=== PATIENT | male | born 1960 | race Caucasian/White ===

== ENCOUNTER → 2016-12-29 | Outpatient (CLI) | payer OTHER | END | disposition home or self-care (01) | LOC: LABWHC1 09:48 | PROVIDERS: ATTEND Internal Medicine Interventional Cardiology | DX: E05.90 Thyrotoxicosis, unspecified without thyrotoxic crisis or storm (principal) | CPT/HCPCS: 36415; 84439; 84443 ==

== ENCOUNTER → 2017-01-11 | Outpatient (CLI) | payer OTHER ==
[2017-01-11 16:59] LABS: Anion Gap 8 mmol/L; Blood Urea Nitrogen 24 mg/dL (9-20); Calcium 9.5 mg/dL (8.4-10.2); Carbon Dioxide 28 mmol/L (22-30); Chloride 105 mmol/L (98-107); Digoxin 0.9 ng/mL; Glucose 91 mg/dL (74-99); Non-African American GFR(MDRD) >60 (>60 ml/min/1.73 sqM); Potassium 4.5 mmol/L (3.5-5.1); Sodium 141 mmol/L (137-145)
== END | disposition home or self-care (01) ==
LOC: LABWHC1 16:07
PROVIDERS: ATTEND Internal Medicine Interventional Cardiology
DX: R00.2 Palpitations (principal)
CPT/HCPCS: 36415; 80048; 80162; 83735

== ENCOUNTER → 2017-02-19 | Outpatient (CLI) | payer OTHER ==
[2017-02-19 17:39] LABS: Anion Gap 8 mmol/L; Blood Urea Nitrogen 28 mg/dL (9-20); Calcium 9.3 mg/dL (8.4-10.2); Carbon Dioxide 28 mmol/L (22-30); Chloride 105 mmol/L (98-107); Digoxin 0.8 ng/mL; Glucose 97 mg/dL (74-99); Magnesium 2.1 mg/dL (1.6-2.3); Non-African American GFR(MDRD) >60 (>60 ml/min/1.73 sqM); Potassium 4.6 mmol/L (3.5-5.1); Sodium 141 mmol/L (137-145)
== END | disposition home or self-care (01) ==
LOC: LABWHC1 16:34
PROVIDERS: ATTEND Internal Medicine Interventional Cardiology
DX: I49.9 Cardiac arrhythmia, unspecified (principal)
CPT/HCPCS: 36415; 80048; 80162; 83735

== ENCOUNTER → 2017-04-11 | Outpatient (CLI) | payer OTHER | END | disposition home or self-care (01) | LOC: MMGSC 15:16 | PROVIDERS: ATTEND Obstetrics & Gynecology | DX: E29.1 Testicular hypofunction (principal) | CPT/HCPCS: 82670; 84402; 84403; 36415; G0103 ==

== ENCOUNTER → 2017-05-22 | Outpatient (CLI) | payer OTHER ==
[2017-05-22 18:57] LABS: HCT 45.1 % (39.0-53.0); HGB 13.6 gm/dL (13.0-17.5); Hypochromasia Marked; MCH 29.2 pg (25.0-35.0); MCHC 30.1 g/dL (31.0-37.0); MCV 96.9 fL (80.0-100.0); Mean Platelet Volume 7.9; Platelet Count 329 k/uL (150-450); RBC 4.66 m/uL (4.30-5.90); RDW 15.4 % (11.5-15.5); WBC 6.6 k/uL (3.8-10.6)
== END | disposition home or self-care (01) ==
LOC: MMGSC 09:59
PROVIDERS: ATTEND Obstetrics & Gynecology
DX: E29.1 Testicular hypofunction (principal)
CPT/HCPCS: 36415; 82670; 84403; 85027

== ENCOUNTER 2018-03-12 07:12 | Day surgery (SDC) | payer OTHER ==
[2018-03-08 11:34] VITALS: BMI 23.0
[~2018-03-12 07:12] MED LIST: LACTATED RINGERS 1,000 ML IV SCH; LIDOCAINE 1% 20 ML VIAL (10MG/ML) FOR IV START INTRADERMA PRN; MIDAZOLAM 2 MG/2 ML VIAL IV PRN
[2018-03-12 08:01] VITALS: TEMP 06.9
[2018-03-12] MEDS ORDERED: PROPOFOL 10 MG/ML 20 ML VIAL IV ONE (09:07)
--- NOTE | 2018-03-12 09:45 | P.PCN ---
Date of Procedure: 03/12/18 Procedure(s) Performed: Procedure: Colonoscopy and polypectomy. Preoperative diagnosis: Screening for neoplasia. Postoperative diagnosis: 1. Small cecal polyp snared but no large polyps or cancer. 2. Sigmoid diverticulosis with no evidence of acute diverticulitis or strictures. Preparation: HalfLytely prep. Sedation: Was provided by anesthesia. Brief clinical history: The patient is a 58-year-old male who is scheduled for this evaluation for screening for neoplasia. His first exam was around age 52. The patient has no abdominal complaints, bleeding or anemia. He has history of Hodgkin's lymphoma and history of polyps. Procedure: With the patient on his left lateral decubitus position and after informed consent and adequate sedation, the perianal area was inspected and it did not show any fissures or fistulas. There were no masses felt on digital rectal examination. The Olympus CFH 190L videocolonoscope was then inserted in the rectum in the usual fashion and advanced to the cecum. There was occasional diverticular orifices seen scattered in the sigmoid but no evidence of acute diverticulitis or strictures. The mucosa appeared healthy. A small flat polyp was seen in the cecum which was snared and retrieved by suction but there were no large polyps or cancer. I retroflexed the endoscope in the rectum before the endoscope was withdrawn. The patient tolerated the procedure well. Plan: The patient was reassured. Discussed dietary measures. He will follow up with you as planned and I recommended repeat exam in 5 years.
[2018-03-12 09:55] VITALS: BP 107/69; PULSE 92; RESP 16
== END 2018-03-12 10:06 | disposition home or self-care (01) ==
LOC: ORWHC2ENDO 07:12
DX: Z12.11 Encounter for screening for malignant neoplasm of colon (principal); D12.0 Benign neoplasm of cecum; K57.30 Diverticulosis of large intestine without perforation or abscess without bleeding; Z86.010 Personal history of colon polyps; Z85.71 Personal history of Hodgkin lymphoma; I10 Essential (primary) hypertension; E78.5 Hyperlipidemia, unspecified; E07.9 Disorder of thyroid, unspecified; J45.909 Unspecified asthma, uncomplicated; Z79.890 Hormone replacement therapy; Z79.51 Long term (current) use of inhaled steroids; Z79.899 Other long term (current) drug therapy; Z88.0 Allergy status to penicillin
CPT/HCPCS: 88305; 45385; J2704

== ENCOUNTER → 2021-01-13 | Outpatient (CLI) | payer BC ==
--- NOTE | 2021-01-14 06:45 | CT ---
EXAMINATION TYPE: CT chest wo con DATE OF EXAM: 01/13/2021 COMPARISON: NONE HISTORY: pneumonia CT DLP: 491 mGycm. Automated Exposure Control for Dose Reduction was Utilized. TECHNIQUE: CT scan of the thorax is performed without IV contrast. FINDINGS: LUNGS: There is evidence of left-sided volume loss with mediastinal shift and elevated left hemidiaph ragm. There is focal linear scarring extending from the left hilum region superiorly and inferiorly t o the lung apex along the mediastinum and inferiorly to the diaphragm more central aspect. Right lung is predominantly clear with mild basilar linear atelectasis and/or scarring. No suspicious focal con solidation. No pleural effusion or pneumothorax seen bilaterally. There is moderate to severe left ap ical pleural thickening. MEDIASTINUM: Lack of IV contrast is noted to limit evaluation for mediastinal and especially hilar ad enopathy. There are no definitive greater than 1 cm mediastinal lymph nodes. No cardiomegaly or per icardial effusion is seen. Prominent main pulmonary artery. CT findings suggesting underlying pulmona ry hypertension. Calculation level of the aortic valve. Moderate coronary artery calcification. Curvi linear calcification along the left aspect mediastinum and thoracic level coronal image 26 near site of chronic scarring. OTHER: Slight scoliotic curvature. IMPRESSION: Chronic changes left lung with left-sided volume loss. No suspicious acute infiltrate zafar aterally.
== END | disposition home or self-care (01) ==
LOC: RADCTMAIN 06:22
PROVIDERS: ATTEND Family Medicine
DX: J92.9 Pleural plaque without asbestos (principal); R91.8 Other nonspecific abnormal finding of lung field; I25.10 Atherosclerotic heart disease of native coronary artery without angina pectoris
CPT/HCPCS: 71250

== ENCOUNTER → 2021-05-07 | Outpatient (CLI) | payer BC ==
[2021-05-07 11:12] LABS: HCT 46.3 % (39.6-50.0); HGB 14.4 g/dL (13.0-17.0); MCH 29.6 pg (27.0-32.0); MCHC 31.1 g/dL (32.0-37.0); MCV 95.1 fL (80.0-97.0); Mean Platelet Volume 9.3 fL (9.5-12.2); NRBC Per 100 WBC 0 /100 WBCS (0.0-0.0); Platelet Count 286 X 10*3/uL (140-440); RBC 4.87 X 10*6/uL (4.40-5.60); RDW 14.9 % (11.5-14.5); WBC 5.91 X 10*3/uL (4.50-10.00)
[2021-05-07 11:29] LABS: Estradiol 20.6 pg/mL
== END | disposition home or self-care (01) ==
LOC: LABWHC1 08:07
PROVIDERS: ATTEND Obstetrics & Gynecology
DX: E34.50 Androgen insensitivity syndrome, unspecified (principal)
CPT/HCPCS: 36415; 82670; 84403; 85027

== ENCOUNTER 2022-08-30 13:35 | Inpatient (IN) | payer BC ==
[2022-08-30] MEDS ORDERED: KETOROLAC 15 MG/ML 1 ML VIAL IVP STA (13:54)
[2022-08-30] MEDS ORDERED: SODIUM CHLORIDE 0.9% 1,000 ML IV STA (13:54)
[2022-08-30] MEDS ORDERED: HYDROmorphone 1 MG/ML 1 ML SYRINGE IVP STA (13:54)
--- NOTE | 2022-08-30 13:57 | ED ---
Abdominal Pain HPI - General Chief Complaint: Abdominal Pain Stated Complaint: abd pain Time Seen by Provider: 08/30/22 13:46 Source: patient, family, RN notes reviewed Mode of arrival: ambulatory Limitations: no limitations - History of Present Illness Initial Comments: This is a 62-year-old male who presents to the emergency department for abdominal pain. His states that he's been doubled over in pain for 2-3 hours. Patient states that it starts in the center of his abdomen and radiates to his back. He denies any nausea, vomiting, diarrhea, or constipation. Also denies any history of similar symptoms in the past. On initial evaluation, the patient is curled up in pain and his is providing majority of the history. History of abdominal surgeries includes an appendectomy. Otherwise denies any history of bowel instruction, bowel rupture, or other acute intra-abdominal process. Denies any fevers, chills, sore throat, cough, dyspnea, chest pain, palpitations, nausea, vomiting, diarrhea, back pain, or headaches. MD Complaint: abdominal pain Location: diffuse - Related Data Home Medications Medication Instructions Recorded Confirmed Ezetimibe/Simvastatin [Vytorin 1 tab PO HS 10/06/15 08/30/22 10-40 mg Tablet] Fluticasone Propion/Salmeterol 1 puff INHALATION RT-BID 10/06/15 08/30/22 [Advair 500-50 Diskus] Montelukast Sodium [Singulair] 10 mg PO HS 10/06/15 08/30/22 Losartan [Cozaar] 25 mg PO DAILY 03/08/18 08/30/22 Metoprolol Tartrate [Lopressor] 50 mg PO BID 03/08/18 08/30/22 Albuterol Nebulized [Ventolin 2.5 mg INHALATION RT-QID PRN 08/30/22 08/30/22 Nebulized] Budesonide/Glycopyr/Formoterol 1 puff INHALATION RT-BID PRN 08/30/22 08/30/22 [Breztri Aerosphere Inhaler] Ipratropium-Albuterol Nebulize 3 ml INHALATION RT-QID PRN 08/30/22 08/30/22 [Duoneb 0.5 mg-3 mg/3 ml Soln] Levothyroxine Sodium [Synthroid] 88 mcg PO DAILY 08/30/22 08/30/22 Psyllium Husk (with Sugar) 6 gm PO DAILY 08/30/22 08/30/22 [Metamucil Powder] Allergies Allergy/AdvReac Type Severity Reaction Status Date / Time Penicillins Allergy Swelling Verified 08/30/22 17:30 Review of Systems ROS Statement: Those systems with pertinent positive or pertinent negative responses have been documented in the HPI. ROS Other: All systems not noted in ROS Statement are negative. Past Medical History Past Medical History: Asthma, Cancer, Thyroid Disorder Additional Past Medical History / Comment(s): irregular heartbeat, hx hodgkins lymphoma History of Any Multi-Drug Resistant Organisms: None Reported Past Surgical History: Appendectomy, Orthopedic Surgery Additional Past Surgical History / Comment(s): thoracotomy, rt shoulder surgery Past Anesthesia/Blood Transfusion Reactions: No Reported Reaction Past Psychological History: No Psychological Hx Reported Smoking Status: Never smoker Past Alcohol Use History: Occasional Past Drug Use History: None Reported - Past Family History Mother Family Medical History: No Reported History General Exam Limitations: no limitations General appearance: alert, in distress Head exam: Present: atraumatic, normocephalic, normal inspection Respiratory exam: Present: normal lung sounds bilaterally. Absent: respiratory distress, wheezes, rales, rhonchi, stridor Cardiovascular Exam: Present: regular rate, normal rhythm, normal heart sounds. Absent: systolic murmur, diastolic murmur, rubs, gallop, clicks GI/Abdominal exam: Present: soft, tenderness (diffuse), normal bowel sounds. Absent: distended Neurological exam: Present: alert, oriented X3, CN II-XII intact Psychiatric exam: Present: normal affect, normal mood Skin exam: Present: warm, dry, intact, normal color. Absent: rash Course Vital Signs 08/30/22 08/30/22 08/30/22 13:36 15:43 18:00 Temperature 97.4 F L Pulse Rate 67 90 91 Respiratory 20 18 18 Rate Blood Pressure 86/47 139/85 114/83 O2 Sat by Pulse 100 99 95 Oximetry Medical Decision Making - Medical Decision Making This is a 62-year-old male who presents to the emergency department for abdominal pain. Was pt. sent in by a medical professional or institution? @ -No Did you speak to anyone other than the patient for history? @ -His provided the majority of the history due to the patient's pain level. He provided the history in terms of no nausea, vomiting, or change in bowel or bladder habits. Also states that he had never had any similar symptoms in the past. Did you review nursing and triage notes? @ -Yes, and I agree, it is accurate with regards to the patient's symptoms. Were old charts reviewed? @ -No Differential Diagnosis? @ -Differential Abdominal Pain Men: Cholecystitis, diverticulosis, ischemic bowel, pancreatitis, hepatitis, UTI, gastroenteritis, AAA, incarcerated hernia, bowel obstruction, constipation, inflammatory bowel, hepatitis, peptic ulcer disease, splenic infarction, perforated viscus, testicular torsion, this is not meant to be an all-inclusive list EKG interpreted by me (3pts min.)? @ -Not obtained X-rays interpreted by me (1pt min.)? @ -Not obtained CT interpreted by me (1pt min.)? @ -Computed tomography scan of the abdomen and pelvis obtained. My interpretation identifies dilated small bowel loops with air-fluid levels. U/S interpreted by me (1pt. min.)? @ -Not obtained What testing was considered but not performed? (CT, X-rays, U/S, labs)? Why? @ -None What meds were considered but not given? Why? @ -None Did you discuss the management of the patient with other professionals? @ -Yes, Dr. Karimi, who advises NG tube placement with diet largely consisting of ice chips. Dr. Swift accepts the patient for admission to medicine. Did you reconcile home meds? @ -No Was smoking cessation discussed for >3mins.? @ -No Was critical care preformed (if so, how long)? @ -No Were there social determinants of health that impacted care today? How? (Homelessness, low income, unemployed, alcoholism, drug addiction, transportation, low edu. Level, literacy, decrease access to med. care, fdc, rehab)? @ -No Was there de-escalation of care discussed even if they declined? (Discuss DNR or withdrawal of care, Hospice)? @ -No What co-morbidities impacted this encounter? (DM, HTN, Smoking, COPD, CAD, Cancer, CVA, Hep., AIDS, mental health diagnosis, sleep apnea, morbid obesity)? @ -None Was patient admitted / discharged? @ -Admitted. Lab work obtained and found to be nonactionable. Computed tomography scan of the abdomen and pelvis obtained revealing concerns for distal small bowel obstruction. Pain was very well controlled with Toradol and Dilaudid. Patient admitted to medicine for small bowel obstruction with general surgery consult. Case discussed with Dr. Karimi, general surgery, who advised NG tube placement and having his diet essentially consist of ice chips for the meantime. NG tube was placed successfully by the nursing staff and hooked up to intermittent low wall suction. Undiagnosed new problem with uncertain prognosis? @ -None Drug Therapy requiring intensive monitoring for toxicity (Heparin, Nitro, Insulin, Cardizem)? @ -None Were any procedures done? @ -None Diagnosis/symptom? @ -Small bowel obstruction Acute, or Chronic, or Acute on Chronic? @ -Acute Uncomplicated (without systemic symptoms) or Complicated (systemic symptoms)? @ -Complicated Side effects of treatment? @ -None Exacerbation, Progression, or Severe Exacerbation] @ -Not applicable Poses a threat to life or bodily function? @ -Yes This case was discussed in detail with the attending ED physician, Dr. Irby. Presentation, findings, and treatment plan discussed in detail as well. - Lab Data Result diagrams: 08/30/22 14:12 08/30/22 14:12 Lab Results 08/30/22 08/30/22 08/30/22 Range/Units 14:12 14:12 14:12 WBC 8.4 (3.8-10.6) k/uL RBC 4.90 (4.30-5.90) m/uL Hgb 15.1 (13.0-17.5) gm/dL Hct 45.3 (39.0-53.0) % MCV 92.4 (80.0-100.0) fL MCH 30.7 (25.0-35.0) pg MCHC 33.2 (31.0-37.0) g/dL RDW 14.8 (11.5-15.5) % Plt Count 251 (150-450) k/uL MPV 7.4 Neutrophils % 64 % Lymphocytes % 26 % Monocytes % 7 % Eosinophils % 1 % Basophils % 0 % Neutrophils # 5.3 (1.3-7.7) k/uL Lymphocytes # 2.2 (1.0-4.8) k/uL Monocytes # 0.5 (0-1.0) k/uL Eosinophils # 0.1 (0-0.7) k/uL Basophils # 0.0 (0-0.2) k/uL Sodium 136 L (137-145) mmol/L Potassium 4.6 (3.5-5.1) mmol/L Chloride 99 (98-107) mmol/L Carbon Dioxide 28 (22-30) mmol/L Anion Gap 9 mmol/L BUN 17 (9-20) mg/dL Creatinine 0.97 (0.66-1.25) mg/dL Est GFR (CKD-EPI)AfAm >90 (>60 ml/min/1.73 sqM) Est GFR (CKD-EPI)NonAf 85 (>60 ml/min/1.73 sqM) Glucose 126 H (74-99) mg/dL Plasma Lactic Acid Matthew 2.0 (0.7-2.0) mmol/L Calcium 9.7 (8.4-10.2) mg/dL Total Bilirubin 0.7 (0.2-1.3) mg/dL AST 39 (17-59) U/L ALT 27 (4-49) U/L Alkaline Phosphatase 68 (38-126) U/L Troponin I (0.000-0.034) ng/mL C-Reactive Protein <0.5 (<1.0) mg/dL Total Protein 6.9 (6.3-8.2) g/dL Albumin 4.4 (3.5-5.0) g/dL Amylase 52 (30-110) U/L Lipase 45 (23-300) U/L // Range/Units 14:12 WBC (3.8-10.6) k/uL RBC (4.30-5.90) m/uL Hgb (13.0-17.5) gm/dL Hct (39.0-53.0) % MCV (80.0-100.0) fL MCH (25.0-35.0) pg MCHC (31.0-37.0) g/dL RDW (11.5-15.5) % Plt Count (150-450) k/uL MPV Neutrophils % % Lymphocytes % % Monocytes % % Eosinophils % % Basophils % % Neutrophils # (1.3-7.7) k/uL Lymphocytes # (1.0-4.8) k/uL Monocytes # (0-1.0) k/uL Eosinophils # (0-0.7) k/uL Basophils # (0-0.2) k/uL Sodium (137-145) mmol/L Potassium (3.5-5.1) mmol/L Chloride (98-107) mmol/L Carbon Dioxide (22-30) mmol/L Anion Gap mmol/L BUN (9-20) mg/dL Creatinine (0.66-1.25) mg/dL Est GFR (CKD-EPI)AfAm (>60 ml/min/1.73 sqM) Est GFR (CKD-EPI)NonAf (>60 ml/min/1.73 sqM) Glucose (74-99) mg/dL Plasma Lactic Acid Matthew (0.7-2.0) mmol/L Calcium (8.4-10.2) mg/dL Total Bilirubin (0.2-1.3) mg/dL AST (17-59) U/L ALT (4-49) U/L Alkaline Phosphatase (38-126) U/L Troponin I <0.012 (0.000-0.034) ng/mL C-Reactive Protein (<1.0) mg/dL Total Protein (6.3-8.2) g/dL Albumin (3.5-5.0) g/dL Amylase (30-110) U/L Lipase (23-300) U/L - Radiology Data Radiology results: report reviewed, image reviewed Disposition Clinical Impression: Small bowel obstruction Disposition: ADMITTED IP TO THIS HOSP
[2022-08-30 14:17] LABS: Basophils % (A) 0 %; Eosinophils # (A) 0.1 k/uL (0-0.7); Eosinophils % (A) 1 %; HCT 45.3 % (39.0-53.0); HGB 15.1 gm/dL (13.0-17.5); Lymphocytes # (A) 2.2 k/uL (1.0-4.8); Lymphocytes % (A) 26 %; MCH 30.7 pg (25.0-35.0); MCHC 33.2 g/dL (31.0-37.0); MCV 92.4 fL (80.0-100.0); Mean Platelet Volume 7.4; Monocytes # (A) 0.5 k/uL (0-1.0); Monocytes % (A) 7 %; Neutrophils # (A) 5.3 k/uL (1.3-7.7); Neutrophils % (A) 64 %; Platelet Count 251 k/uL (150-450); RDW 14.8 % (11.5-15.5); WBC 8.4 k/uL (3.8-10.6)
[2022-08-30 14:31] LABS: ALT 27 U/L (4-49); AST 39 U/L (17-59); African American GFR (CKD) >90 (>60 ml/min/1.73 sqM); Albumin 4.4 g/dL (3.5-5.0); Alkaline Phosphatase 68 U/L (38-126); Amylase 52 U/L (30-110); Anion Gap 9 mmol/L; Blood Urea Nitrogen 17 mg/dL (9-20); Calcium 9.7 mg/dL (8.4-10.2); Carbon Dioxide 28 mmol/L (22-30); Chloride 99 mmol/L (98-107); Glucose 126 mg/dL (74-99); Lipase 45 U/L (23-300); Non-African American GFR(CKD) 85 (>60 ml/min/1.73 sqM); Potassium 4.6 mmol/L (3.5-5.1); Sodium 136 mmol/L (137-145); Total Bilirubin 0.7 mg/dL (0.2-1.3); Total Protein 6.9 g/dL (6.3-8.2)
[2022-08-30 14:57] LABS: C Reactive Protein <0.5 mg/dL (<1.0)
--- NOTE | 2022-08-30 15:13 | CT ---
EXAMINATION TYPE: CT abdomen pelvis w con DATE OF EXAM: 08/30/2022 COMPARISON: None. HISTORY: Abdominal pain, non localized. Hx Hodgkins lymphoma CT DLP: 716.8 mGycm, Automated Exposure Control for Dose Reduction was Utilized. CONTRAST: CT scan of the abdomen and pelvis is performed without oral and with IV Contrast, patient injected wi th 100 mL of Isovue 300. FINDINGS: LUNG BASES: [id number] bibasilar linear scarring and/or atelectasis is present. LIVER/GB: There is 8mm benign-appearing thin-walled cyst in the liver axial image 25. PANCREAS: No significant abnormality is seen. SPLEEN: No significant abnormality is seen. ADRENALS: No significant abnormality is seen. KIDNEYS: Symmetric corticomedullary uptake and excretion without hydronephrosis seen bilaterally. Sma ll central simple parapelvic cysts in the left kidney are seen BOWEL: No significant dilatation or distention of the stomach or duodenal sweep. There are than fluid prominent and slightly abnormally dilated small bowel loops throughout the mid t o lower abdomen with multiple air-fluid levels. There are nondilated ileal loops in the right abdomen . Fecal material is seen in nondistended colon. Distal scattered colonic diverticula are seen. No CT evidence for acute diverticulitis. Fluid prominent dilated small bowel loops extend into the pelvis. Several air-fluid levels are present. There is abrupt transition to nondilated small bowel loop in th e anterior mid to lower abdomen just left of midline coronal image 13 although this loop was difficul t to track from this point. No free air. No mesenteric air. PROSTATE/SEMINAL VESICLES: Prostate gland measures upper limits of normal in size. LYMPH NODES: No greater than 1cm abdominal or pelvic lymph nodes are appreciated. Prominent but subc entimeter lymph nodes throughout the left abdominal mesentery are seen. OSSEOUS STRUCTURES: No significant abnormality is seen. OTHER: No significant additional abnormality is seen. IMPRESSION: Findings consistent with distal small bowel obstruction with transition point likely ante rior lower abdomen on the basis of adhesions.
[2022-08-30] MEDS ORDERED: ACETAMINOPHEN TAB 325 MG TAB PO PRN (16:01)
[2022-08-30] MEDS ORDERED: IBUPROFEN 400 MG TAB PO PRN (16:01)
[2022-08-30] MEDS ORDERED: NALOXONE 0.4 MG/ML 1 ML VIAL IV PRN (16:01)
[2022-08-30] MEDS ORDERED: ONDANSETRON 4 MG/2 ML VIAL IVP PRN (16:01)
[2022-08-30] MEDS ORDERED: HYDROmorphone 0.5 MG/0.5 ML SYRINGE IVP PRN (16:01)
[2022-08-30] MEDS ORDERED: SODIUM CHLORIDE 0.9% 1,000 ML IV SCH (16:15)
[2022-08-30 16:19] LABS: Appearance,Urine Clear (Clear); Bilirubin,Urine Negative (Negative); Blood,Urine Negative (Negative); Color,Urine Yellow; Glucose,Urine (UA) Negative (Negative); Ketones,Urine 1+ (Negative); Leukocyte Esterase,Urine Negative (Negative); Nitrite,Urine Negative (Negative); Protein,Urine Trace (Negative); Urobilinogen,Urine <2.0 mg/dL (<2.0)
[2022-08-30 16:21] LABS: Specific Gravity,Urine >1.050 (1.001-1.035)
[2022-08-30] MEDS: ONDANSETRON 4 MG/2 ML VIAL IVP PRN (16:23)
[2022-08-30] MEDS: HYDROmorphone 1 MG/ML 1 ML SYRINGE IVP PRN ×2 (16:25→19:58)
--- NOTE | 2022-08-30 16:27 | P.HPIM ---
History of Present Illness H&P Date: 08/30/22 Chief Complaint: abdominal pain 62-year-old man with medical history of appendix removal, mild persistent asthma, hypertension, hypothyroidism, nonobstructive CAD presented with abdominal pain. Patient says that he started to have some abdominal pain this morning and 10 in the morning. He tried to have lunch, but this made his abdominal pain significantly worse. He denies having nausea or vomiting associated with this. He has passed only minimal bowel movements but otherwise is not constipated for the last 2 days. He is not passing flatus but has significant amount of belching. Patient denies fevers, chills, chest pain, palpitations, sick, presyncope, cough, dyspnea, dysuria, dyschezia, numbness/weakness of extremities. In the emergency room, patient was afebrile, 139/85, heart rate 90, 99% on room air. CBC was unremarkable. Basic metabolic panel showed a sodium of 136. Liver function tests are unremarkable. CRP was less than 0.5. Troponins less than 0.012. Lipase is 45, amylase is 52. UA showed a high specific gravity greater than 1.05, trace protein, 1+ ketones. CT of the abdomen/pelvis showed findings consistent with distal small bowel obstruction with transition point likely in the anterior lower abdomen. Case was discussed with the emergency room provider and decision was made to admit the patient for small bowel obstruction. All Systems reviewed and pertinent positives and negatives noted in HPI, all other symptoms are negative Gen: in no apparent distress, resting comfortably in bed Eyes: PERRL, no scleral injection or icterus HENT: normocephalic, atraumatic, good hearing acuity, moist mucous membranes Neck: no tracheal deviation, full range of motion Resp: good air exchange, breathing comfortably with no accessory muscle use, no tactile fremitus CVS: good distal perfusion x 4, no pitting edema GI: soft, NTTP, ND, no hepatosplenomegaly : no suprapubic tenderness, no CVAT, kapoor catheter not present MSK: no clubbing, no cyanosis, no noted contractures of extremities Skin: no noted rashes, petechiae; temperature of skin is appropriate Neuro: moving all extremities without signs of weakness, CN II-XII intact Psych: cooperative, euthymic mood, insight and judgment intact Labs and imaging as above Assessment: Small bowel obstruction Mild persistent asthma Hypertension Hypothyroidism Nonobstructive CAD Plan: Vital signs reviewed and noted in the HPI Lab work reviewed and noted in the HPI CT of the abdomen/pelvis was reviewed and noted in HPI Case was discussed with the Emergency Room provider and decision was made to admit the patient for small bowel obstruction Insert NG tube, discussed with nursing as well as patient and patient's Gen. surgery consulted Nothing by mouth Lactated Ringer's at 100 mL per hour Dilaudid 1 mg every 3 hours when necessary for pain control Zofran 4 mg every 4 hours when necessary for nausea Patient is full code Past Medical History Past Medical History: Asthma, Cancer, Thyroid Disorder Additional Past Medical History / Comment(s): irregular heartbeat, hx hodgkins lymphoma History of Any Multi-Drug Resistant Organisms: None Reported Past Surgical History: Appendectomy, Orthopedic Surgery Additional Past Surgical History / Comment(s): thoracotomy, rt shoulder surgery Past Anesthesia/Blood Transfusion Reactions: No Reported Reaction Past Psychological History: No Psychological Hx Reported Smoking Status: Never smoker Past Alcohol Use History: Occasional Past Drug Use History: None Reported - Past Family History Mother Family Medical History: No Reported History Medications and Allergies Home Medications Medication Instructions Recorded Confirmed Type Aspirin [Adult Low Dose Aspirin EC] 81 mg PO DAILY 10/06/15 03/12/18 History Ezetimibe/Simvastatin [Vytorin 1 tab PO HS 10/06/15 03/12/18 History 10-40 mg Tablet] Fluticasone Propion/Salmeterol 1 inhalation PO DAILY 10/06/15 03/12/18 History [Advair 500-50 Diskus] Levothyroxine Sodium [Synthroid] 75 mcg PO DAILY 10/06/15 03/12/18 History Montelukast Sodium [Singulair] 10 mg PO DAILY 10/06/15 03/12/18 History Losartan [Cozaar] 25 mg PO HS 03/08/18 03/12/18 History Metoprolol Tartrate [Lopressor] 100 mg PO BID 03/08/18 03/12/18 History Spironolactone 25 mg PO HS 03/08/18 03/12/18 History Zolpidem [Ambien] 5 mg PO HS PRN 03/08/18 03/12/18 History Allergies Allergy/AdvReac Type Severity Reaction Status Date / Time Penicillins Allergy Swelling Verified 08/30/22 13:41 Physical Exam Osteopathic Statement: *. No significant issues noted on an osteopathic structural exam other than those noted in the History and Physical/Consult. Vitals: Vital Signs Temp Pulse Resp BP Pulse Ox 08/30/22 15:43 90 18 139/85 99 08/30/22 13:36 97.4 F L 67 20 86/47 100 Intake and Output 08/30/22 08/30/22 08/30/22 06:59 14:59 22:59 Other: Weight 74.843 kg Results CBC & Chem 7: 08/30/22 14:12 08/30/22 14:12 Labs: Abnormal Lab Results - Last 24 Hours (Table) 08/30/22 Range/Units 14:12 Sodium 136 L (137-145) mmol/L Glucose 126 H (74-99) mg/dL
[2022-08-30] MEDS: LACTATED RINGERS 1,000 ML IV SCH (16:30)
--- NOTE | 2022-08-30 19:10 | XR ---
EXAMINATION TYPE: XR chest 1V confirm line plcmt DATE OF EXAM: 08/30/2022 6:46 PM COMPARISON: CT chest 01/13/2021 TECHNIQUE: XR chest 1V confirm line plcmt Portable AP radiograph of the chest. CLINICAL INDICATION:Male, 62 years old with history of NG Tube Placement; FINDINGS: Lungs/Pleura: During of the right costophrenic angle. No focal consolidation or pneumothorax. Chronic left-sided volume loss. Apical pleural thickening. Pulmonary vascularity: Unremarkable. Heart/mediastinum: Cardiomediastinal silhouette is unremarkable. Atherosclerotic calcifications are seen in the aorta. Musculoskeletal: No acute osseous pathology. Other findings: None Lines/Tubes: Nasogastric tube with its distal tip and side-port projecting under the diaphragm and projecting over the gastric lumen. IMPRESSION: 1. NG tube in appropriate position terminating in the stomach. 2. Small right pleural effusion and chronic left-sided volume loss.
[2022-08-31] MEDS: HYDROmorphone 1 MG/ML 1 ML SYRINGE IVP PRN ×2 (00:01→04:48)
[2022-08-31] MEDS: ONDANSETRON 4 MG/2 ML VIAL IVP PRN ×3 (01:39→10:15)
[2022-08-31] MEDS: LACTATED RINGERS 1,000 ML IV SCH ×2 (01:40→13:49)
[2022-08-31] MEDS: KETOROLAC 15 MG/ML 1 ML VIAL IVP PRN ×2 (01:47→08:27)
[2022-08-31] MEDS ORDERED: ACETAMINOPHEN IV (For NPO) 1,000 MG in EMPTY BAG 1 BAG IVPB PRN (04:58)
[2022-08-31 07:18] VITALS: RESP 18
[2022-08-31 08:40] LABS: Basophils # (A) 0.05 X 10*3/uL (0.00-0.10); Basophils % (A) 0.5 %; Eosinophils # (A) 0.06 X 10*3/uL (0.04-0.35); Eosinophils % (A) 0.6 %; HCT 43.8 % (39.6-50.0); HGB 13.7 g/dL (13.0-17.0); Immature Grans, Automated 0.2 %; Lymphocytes % (A) 15.5 %; MCH 29.5 pg (27.0-32.0); MCHC 31.3 g/dL (32.0-37.0); MCV 94.2 fL (80.0-97.0); Mean Platelet Volume 9.9 fL (9.5-12.2); Monocytes # (A) 0.83 X 10*3/uL (0.20-1.00); Monocytes % (A) 8.6 %; NRBC Per 100 WBC 0 /100 WBCS (0.0-0.0); Neutrophils # (A) 7.19 X 10*3/uL (1.80-7.70); Neutrophils % (A) 74.6 %; Platelet Count 228 X 10*3/uL (140-440); RBC 4.65 X 10*6/uL (4.40-5.60); RDW 16.5 % (11.5-14.5); WBC 9.65 X 10*3/uL (4.50-10.00)
[2022-08-31 08:50] LABS: African American GFR (CKD) 94.4 (60.0-200.0); Anion Gap 9.2 mmol/L (10.00-18.00); Calcium 9.3 mg/dL (8.7-10.3); Carbon Dioxide 29.8 mmol/L (20.0-27.5); Non-African American GFR(CKD) 81.4 (60.0-200.0); Potassium 4.9 mmol/L (3.5-5.5)
--- NOTE | 2022-08-31 10:12 | P.PN ---
Subjective Progress Note Date: 08/31/22 No new complaints. Passing gas, no BMs. Gen: awake, alert HEENT: normocephalic, atraumatic, good hearing acuity, moist mucous membranes Resp: good air exchange, breathing comfortably with no accessory muscle use CVS: good distal perfusion x 4, GI: soft, NTTP, ND : no SPT, no CVAT, kapoor catheter not present MSK: no pitting edema, no clubbing Neuro: non-focal, moving all extremities Psych: cooperative, euthymic mood Hospital Course: 62-year-old man with medical history of appendix removal, mild persistent asthma, hypertension, hypothyroidism, nonobstructive CAD presented with abdominal pain. In the emergency room, patient was afebrile, 139/85, heart rate 90, 99% on room air. CBC was unremarkable. Basic metabolic panel showed a sodium of 136. Liver function tests are unremarkable. CRP was less than 0.5. Troponins less than 0.012. Lipase is 45, amylase is 52. UA showed a high speci fic gravity greater than 1.05, trace protein, 1+ ketones. CT of the abdomen/pelvis showed findings consistent with distal small bowel obstruction with transition point likely in the anterior lower abdomen. Case was discussed with the emergency room provider and decision was made to admit the patient for small bowel obstruction. Assessment: Small bowel obstruction Mild persistent asthma Hypertension Hypothyroidism Nonobstructive CAD Plan: Pt is afebrile, 103/66, 97, 95% on room air CBC, BMP, Mg reviewed and unremarkable Maintain NGT until seen by surgery Gen. surgery consulted Nothing by mouth Lactated Ringer's at 100 mL per hour Dilaudid 1 mg every 3 hours when necessary for pain control Zofran 4 mg every 4 hours when necessary for nausea Patient is full code Objective - Vital Signs Vital signs: Vital Signs Temp 98.2 F 08/31/22 07:00 Pulse 97 08/31/22 07:00 Resp 18 08/31/22 07:00 BP 103/66 08/31/22 07:00 Pulse Ox 90 L 08/31/22 09:35 FiO2 Intake & Output 08/30/22 08/31/22 08/31/22 18:59 06:59 18:59 Output Total 400 50 Balance -400 -50 Weight 74.843 kg Output: Gastric Drainage 400 50 Other: # Voids 1 - Labs CBC & Chem 7: 08/31/22 05:07 08/31/22 05:07 Labs: Abnormal Lab Results - Last 24 Hours (Table) 08/30/22 08/30/22 08/31/22 Range/Units 14:12 15:44 05:07 MCHC 31.3 L (32.0-37.0) g/dL RDW 16.5 H (11.5-14.5) % Sodium 136 L (137-145) mmol/L Carbon Dioxide (20.0-27.5) mmol/L Anion Gap (10.00-18.00) mmol/L Glucose 126 H (74-99) mg/dL Ur Specific [place] >1.050 H (1.001-1.035) Urine Protein Trace H (Negative) Urine Ketones 1+ H (Negative) 08/31/22 Range/Units 05:07 MCHC (32.0-37.0) g/dL RDW (11.5-14.5) % Sodium (137-145) mmol/L Carbon Dioxide 29.8 H (20.0-27.5) mmol/L Anion Gap 9.20 L (10.00-18.00) mmol/L Glucose (74-99) mg/dL Ur Specific [place] (1.001-1.035) Urine Protein (Negative) Urine Ketones (Negative)
--- NOTE | 2022-08-31 14:32 | P.GSCN ---
History of Present Illness Consult date: 08/31/22 History of present illness: CHIEF COMPLAINT: Abdominal pain HISTORY OF PRESENT ILLNESS: This is a 62-year-old male who presented to the hospital with complaints of mid abdominal pain that radiated to his back. Patient reports that the pain started yesterday afternoon while he was at work. Patient reports that the pain was excruciating and rated a 10 out of 10. Diann montano had constipation about 3 days ago. His last bowel movement was yesterday morning. But since then he had stopped having flatus and no further bowel movements. Patient does report taking Metamucil daily to keep himself regular. Patient presents to the hospital had a computed tomography scan of the abdomen and pelvis which did show a distal small bowel obstruction with transition point at the anterior lower abdomen possibly related to adhesions. Patient had NG tube inserted. After NG tube placement patient had improvement in his abdominal pain and he is now having flatus. Past surgical history does include a laparoscopic appendectomy. Patient also admitted to some nausea after pain medication. Denies any vomiting. Patient reports that he is feeling better this morning. He is no longer having abdominal pain. He denies any prior history of bowel obstruction. He had a colonoscopy about 4 years ago with polyps. PAST MEDICAL HISTORY: See list. Hodgkin's lymphoma requiring chemotherapy and radiation treatment at 20 years old and again at 40 years old, coronary artery disease, tachycardia PAST SURGICAL HISTORY: See list. MEDICATIONS: See list. ALLERGIES: See list. SOCIAL HISTORY: No illicit drug use. REVIEW OF SYSTEMS: CONSTITUTIONAL: Denies fever or chills. HEENT: Denies blurred vision, vision changes, or eye pain. Denies hemoptysis ENDOCRINE: Denies heat or cold intolerance. CARDIOVASCULAR: Denies chest pain or pressure. RESPIRATORY: No shortness of breath. GASTROINTESTINAL: Please refer to HPI NEURO: Denies history of seizures. PSYCH: No depression or suicidal ideation HEMATOLOGIC: Denies bleeding disorders. LYMPHATIC: The patient denies any lumps and bumps around the neck. GENITOURINARY: Denies any blood in urine or increased urinary frequency. MUSCULOSKELETAL: Denies myalgias. Denies joint swelling. Denies decreased range of motion beyond patients baseline. SKIN: Denies pruitis. Denies rash. PHYSICAL EXAM: VITAL SIGNS: Reviewed GENERAL: Well-developed in no acute distress. HEENT: No sclera icterus. Extraocular movements grossly intact. Moist buccal mucosa. Head is atraumatic, normocephalic. Hears conversational speech. No nasal drainage. NECK: Supple without lymphadenopathy. CHEST: Non-labored respirations and equal bilateral excursions. CARDIOVASCULAR: Palpable 2+ radial pulses. ABDOMEN: Soft. Nondistended. Nontender MUSCULOSKELETAL: No clubbing or cyanosis. NEUROLOGIC: No focal or lateralizing signs. Cranial nerves II through XII grossly intact. PSYCH: Appropriate affect. Alert and oriented to person, place and time. SKIN: Well perfused. Good skin turgor. LABORATORY DATA: WBC is 9.65 Hgb is 13.7 platelets are 228 Sodium 141 potassium is 4.9 creatinine 1.0 IMAGING: Computed tomography scan findings are consistent with distal small bowel checks with transition point likely anterior lower abdomen on the basis of adhesions ASSESSMENT: 1. Small bowel obstruction with transition point likely anterior lower abdomen likely due to adhesions 2. History of appendectomy 3. History of Hodgkin's lymphoma 4. Coronary artery disease PLAN: -Patient's small bowel obstruction has improved. He is having flatus. NG tube has been removed. He has tolerated a full liquid diet. Advance diet to regular. If patient tolerates regular diet he can be discharged from surgical standpoint -Recommend outpatient colonoscopy Thank you for this consultation Physician Faculty Neuropsychologist note has been reviewed by physician. Signing provider agrees with the documented findings, assessment, and plan of care. Past Medical History Past Medical History: Asthma, Cancer, Thyroid Disorder Additional Past Medical History / Comment(s): irregular heartbeat, hx hodgkins lymphoma History of Any Multi-Drug Resistant Organisms: None Reported Past Surgical History: Appendectomy, Orthopedic Surgery Additional Past Surgical History / Comment(s): thoracotomy, rt shoulder surgery Past Anesthesia/Blood Transfusion Reactions: No Reported Reaction Past Psychological History: No Psychological Hx Reported Smoking Status: Never smoker Past Alcohol Use History: Occasional Past Drug Use History: None Reported - Past Family History Mother Family Medical History: No Reported History Medications and Allergies Home Medications Medication Instructions Recorded Confirmed Type Ezetimibe/Simvastatin [Vytorin 1 tab PO HS 10/06/15 08/30/22 History 10-40 mg Tablet] Fluticasone Propion/Salmeterol 1 puff INHALATION RT-BID 10/06/15 08/30/22 History [Advair 500-50 Diskus] Montelukast Sodium [Singulair] 10 mg PO HS 10/06/15 08/30/22 History Losartan [Cozaar] 25 mg PO DAILY 03/08/18 08/30/22 History Metoprolol Tartrate [Lopressor] 50 mg PO BID 03/08/18 08/30/22 History Albuterol Nebulized [Ventolin 2.5 mg INHALATION RT-QID PRN 08/30/22 08/30/22 History Nebulized] Budesonide/Glycopyr/Formoterol 1 puff INHALATION RT-BID PRN 08/30/22 08/30/22 History [Breztri Aerosphere Inhaler] Ipratropium-Albuterol Nebulize 3 ml INHALATION RT-QID PRN 08/30/22 08/30/22 History [Duoneb 0.5 mg-3 mg/3 ml Soln] Levothyroxine Sodium [Synthroid] 88 mcg PO DAILY 08/30/22 08/30/22 History Psyllium Husk (with Sugar) 6 gm PO DAILY 08/30/22 08/30/22 History [Metamucil Powder] Allergies Allergy/AdvReac Type Severity Reaction Status Date / Time Penicillins Allergy Swelling Verified 08/30/22 17:30 Surgical - Exam Vital Signs Temp Pulse Resp BP Pulse Ox 97.4 F L 67 20 86/47 100 08/30/22 13:36 08/30/22 13:36 08/30/22 13:36 08/30/22 13:36 08/30/22 13:36 Results - Labs 08/31/22 05:07 08/31/22 05:07 Abnormal Lab Results - Last 24 Hours (Table) 08/30/22 08/30/22 08/31/22 Range/Units 14:12 15:44 05:07 MCHC 31.3 L (32.0-37.0) g/dL RDW 16.5 H (11.5-14.5) % Sodium 136 L (137-145) mmol/L Carbon Dioxide (20.0-27.5) mmol/L Anion Gap (10.00-18.00) mmol/L Glucose 126 H (74-99) mg/dL Ur Specific [place] >1.050 H (1.001-1.035) Urine Protein Trace H (Negative) Urine Ketones 1+ H (Negative) 08/31/22 Range/Units 05:07 MCHC (32.0-37.0) g/dL RDW (11.5-14.5) % Sodium (137-145) mmol/L Carbon Dioxide 29.8 H (20.0-27.5) mmol/L Anion Gap 9.20 L (10.00-18.00) mmol/L Glucose (74-99) mg/dL Ur Specific [place] (1.001-1.035) Urine Protein (Negative) Urine Ketones (Negative) Diabetes panel 08/30/22 08/31/22 Range/Units 14:12 05:07 Sodium 136 L 141 (137-145) mmol/L Potassium 4.6 4.9 (3.5-5.1) mmol/L Chloride 99 102 (98-107) mmol/L Carbon Dioxide 28 29.8 H (22-30) mmol/L BUN 17 14.0 (9-20) mg/dL Creatinine 0.97 1.0 (0.66-1.25) mg/dL Glucose 126 H 93 (74-99) mg/dL Calcium 9.7 9.3 (8.4-10.2) mg/dL AST 39 (17-59) U/L ALT 27 (4-49) U/L Alkaline Phosphatase 68 (38-126) U/L Total Protein 6.9 (6.3-8.2) g/dL Albumin 4.4 (3.5-5.0) g/dL Calcium panel 08/30/22 08/31/22 Range/Units 14:12 05:07 Calcium 9.7 9.3 (8.4-10.2) mg/dL Albumin 4.4 (3.5-5.0) g/dL Pituitary panel 08/30/22 08/31/22 Range/Units 14:12 05:07 Sodium 136 L 141 (137-145) mmol/L Potassium 4.6 4.9 (3.5-5.1) mmol/L Chloride 99 102 (98-107) mmol/L Carbon Dioxide 28 29.8 H (22-30) mmol/L BUN 17 14.0 (9-20) mg/dL Creatinine 0.97 1.0 (0.66-1.25) mg/dL Glucose 126 H 93 (74-99) mg/dL Calcium 9.7 9.3 (8.4-10.2) mg/dL Adrenal panel 08/30/22 08/31/22 Range/Units 14:12 05:07 Sodium 136 L 141 (137-145) mmol/L Potassium 4.6 4.9 (3.5-5.1) mmol/L Chloride 99 102 (98-107) mmol/L Carbon Dioxide 28 29.8 H (22-30) mmol/L BUN 17 14.0 (9-20) mg/dL Creatinine 0.97 1.0 (0.66-1.25) mg/dL Glucose 126 H 93 (74-99) mg/dL Calcium 9.7 9.3 (8.4-10.2) mg/dL Total Bilirubin 0.7 (0.2-1.3) mg/dL AST 39 (17-59) U/L ALT 27 (4-49) U/L Alkaline Phosphatase 68 (38-126) U/L Total Protein 6.9 (6.3-8.2) g/dL Albumin 4.4 (3.5-5.0) g/dL
--- NOTE | 2022-08-31 15:08 | P.DS ---
Providers Date of admission: 08/31/22 12:47 Expected date of discharge: 08/31/22 Attending physician: Minerva Swift DO Consults: 08/30/22 16:01 Consult Physician Urgent Consulting Provider: Xiomara Karimi Consult Reason/Comments: Small bowel obstruction Do you want consulting provider notified?: Yes Primary care physician: Nasim Post MD Hospital Course: Assessment: Small bowel obstruction Mild persistent asthma Hypertension Hypothyroidism Nonobstructive CAD Hospital Course: 62-year-old man with medical history of appendix removal, mild persistent asthma, hypertension, hypothyroidism, nonobstructive CAD presented with abdominal pain. In the emergency room, patient was afebrile, 139/85, heart rate 90, 99% on room air. CBC was unremarkable. Basic metabolic panel showed a sodium of 136. Liver function tests are unremarkable. CRP was less than 0.5. Troponins less than 0.012. Lipase is 45, amylase is 52. UA showed a high specific gravity greater than 1.05, trace protein, 1+ ketones. CT of the abdomen/pelvis showed findings consistent with distal small bowel obstruction with transition point likely in the anterior lower abdomen. Case was discussed with the emergency room provider and decision was made to admit the patient for small bowel obstruction. Pt had NGT tube placed. Seen by general surgery. By following day, was tolerating PO, passing gas. He was discharged home with instructions to f/u with PCP. Gen: awake, alert HEENT: normocephalic, atraumatic, good hearing acuity, moist mucous membranes Resp: good air exchange, breathing comfortably with no accessory muscle use CVS: good distal perfusion x 4, GI: soft, NTTP, ND : no SPT, no CVAT, kapoor catheter not present MSK: no pitting edema, no clubbing Neuro: non-focal, moving all extremities Psych: cooperative, euthymic mood Patient Condition at Discharge: Good Plan - Discharge Summary New Discharge Prescriptions: New Acetaminophen Tab [Tylenol] 650 mg PO Q6HR PRN tab PRN Reason: Mild Pain Or Fever > 100.5 Continue Montelukast Sodium [Singulair] 10 mg PO HS Ezetimibe/Simvastatin [Vytorin 10-40 mg Tablet] 1 tab PO HS Fluticasone Propion/Salmeterol [Advair 500-50 Diskus] 1 puff INHALATION RT- BID Metoprolol Tartrate [Lopressor] 50 mg PO BID Losartan [Cozaar] 25 mg PO DAILY Ipratropium-Albuterol Nebulize [Duoneb 0.5 mg-3 mg/3 ml Soln] 3 ml INHALATION RT-QID PRN PRN Reason: Shortness Of Breath Albuterol Nebulized [Ventolin Nebulized] 2.5 mg INHALATION RT-QID PRN PRN Reason: Shortness Of Breath Budesonide/Glycopyr/Formoterol [Breztri Aerosphere Inhaler] 1 puff INHALATION RT-BID PRN PRN Reason: Shortness Of Breath Levothyroxine Sodium [Synthroid] 88 mcg PO DAILY Psyllium Husk (with Sugar) [Metamucil Powder] 6 gm PO DAILY Discharge Medication List Ezetimibe/Simvastatin [Vytorin 10-40 mg Tablet] 1 tab PO HS 10/06/15 [History] Fluticasone Propion/Salmeterol [Advair 500-50 Diskus] 1 puff INHALATION RT-BID 10/06/15 [History] Montelukast Sodium [Singulair] 10 mg PO HS 10/06/15 [History] Losartan [Cozaar] 25 mg PO DAILY 03/08/18 [History] Metoprolol Tartrate [Lopressor] 50 mg PO BID 03/08/18 [History] Albuterol Nebulized [Ventolin Nebulized] 2.5 mg INHALATION RT-QID PRN 08/30/22 [History] Budesonide/Glycopyr/Formoterol [Breztri Aerosphere Inhaler] 1 puff INHALATION RT-BID PRN 08/30/22 [History] Ipratropium-Albuterol Nebulize [Duoneb 0.5 mg-3 mg/3 ml Soln] 3 ml INHALATION RT-QID PRN 08/30/22 [History] Levothyroxine Sodium [Synthroid] 88 mcg PO DAILY 08/30/22 [History] Psyllium Husk (with Sugar) [Metamucil Powder] 6 gm PO DAILY 08/30/22 [History] Acetaminophen Tab [Tylenol] 650 mg PO Q6HR PRN tab 08/31/22 [Rx] Follow up Appointment(s)/Referral(s): Xiomara Karimi MD [STAFF PHYSICIAN] - 09/05/22 Nasim Post MD [Primary Care Provider] - 1-2 days Discharge Disposition: HOME SELF-CARE
[2022-08-31 15:09] VITALS: BP 123/64; PULSE 111; TEMP 98
--- NOTE | 2022-08-31 17:58 | P.PN ---
Progress Note - Text Progress Note Date: 08/31/22 Patient was discharged from the hospital. Patient contacted at home. He reports he is doing well. Discussed care with patient and . Patient will follow-up in the office as outpatient for continued care.
== END 2022-08-31 15:50 | disposition home or self-care (01) | DRG 390 ==
LOC: EC 13:35 → 6NMEDSUR 15:33 → OBSVTOIN 08-31 12:47 → UNDODISIN 08-31 15:50
PROVIDERS: ADMIT Internal Medicine; ATTEND Internal Medicine
PROC: 0D9670Z Drainage of Stomach with Drainage Device, Via Natural or Artificial Opening (ICD-10-PCS; principal; 2022-08-30)
DX: K56.50 Intestinal adhesions [bands], unspecified as to partial versus complete obstruction (principal); J45.30 Mild persistent asthma, uncomplicated; I10 Essential (primary) hypertension; E03.9 Hypothyroidism, unspecified; I25.10 Atherosclerotic heart disease of native coronary artery without angina pectoris; Z79.890 Hormone replacement therapy; Z79.899 Other long term (current) drug therapy; Z85.71 Personal history of Hodgkin lymphoma; Z88.0 Allergy status to penicillin; Z79.51 Long term (current) use of inhaled steroids; Z92.21 Personal history of antineoplastic chemotherapy; Z92.3 Personal history of irradiation
CPT/HCPCS: 36415; 74177; 80048; 80053; 81003; 82150; 83605; 83690; 83735; 84484; 85025; 86140; 94760; 96361; 96374; 96375; 99285

== ENCOUNTER 2023-09-05 09:12 | Day surgery (SDC) | payer BC ==
[2023-09-05 09:45] VITALS: TEMP 97.6
[2023-09-05] MEDS: LACTATED RINGERS 1,000 ML IV SCH (09:49)
[2023-09-05] MEDS: IV FLUID CONTINUATION 1,000 ML IV ONE (09:50)
[2023-09-05] MEDS ORDERED: PROPOFOL 10 MG/ML 20 ML VIAL IV ONE (10:20)
--- NOTE | 2023-09-05 11:02 | P.PCN ---
Date of Procedure: 09/05/23 Procedure(s) Performed: BRIEF HISTORY: Patient is a 63-year-old pleasant white male scheduled for an elective colonoscopy as a part of screening for colon cancer. PROCEDURE PERFORMED: Colonoscopy with biopsy and snare polypectomy. PREOPERATIVE DIAGNOSIS: Screening for colon cancer. IV sedation per Anesthesia. PROCEDURE: After informed consent was obtained, the patient, was brought into the endoscopy unit. IV sedation was administered by Anesthesia under continuous monitoring. Digital rectal examination was normal. Initially the Olympus CF-160 flexible video colonoscope was then inserted in the rectum, gradually advanced into the cecum without any difficulty. Careful examination was performed as the scope was gradually being withdrawn. Ileocecal valve and the appendiceal orifice were visualized and appeared normal. Prep was excellent. Mucosa of the cecum, appeared normal. Descending colon 2 polyps measuring 5 mm multiple removed by biopsy. There was another 7 mm polyp that was removed by cold snare polypectomy. In the transverse colon there were 2 polyps measuring 4 mm and 6 mm in size removed by cold snare polypectomy. Rest of the ascending colon, transverse colon, descending colon, sigmoid colon, and rectum appeared normal. Proximal rectum there was a 7 mm polyp removed by cold snare polypectomy. Scattered sigmoid diverticulosis seen. Retroflexion was performed in the rectum and no lesions were seen. The patient tolerated the procedure well. IMPRESSION: 5 mm x 2 and 7 mm ascending colon polyp status post cold biopsy and snare polypectomy respectively 4 mm and 6 mm transverse colon polyp status post polypectomy 7 mm proximal rectal polyp status post polypectomy scattered sigmoid diverticulosis RECOMMENDATIONS: Findings of this examination were discussed with the patient as well as his family. He was advised to follow-up with the biopsy results. If the biopsy reveals adenoma he can have repeat colonoscopy in 3 years..
[2023-09-05 11:13] VITALS: BP 115/70; PULSE 92; RESP 18
== END 2023-09-05 12:24 | disposition home or self-care (01) ==
LOC: ORWHC2ENDO 09:12
PROVIDERS: ATTEND Internal Medicine Gastroenterology
DX: Z12.11 Encounter for screening for malignant neoplasm of colon (principal); D12.2 Benign neoplasm of ascending colon; D12.3 Benign neoplasm of transverse colon; D12.8 Benign neoplasm of rectum; K57.30 Diverticulosis of large intestine without perforation or abscess without bleeding; I25.10 Atherosclerotic heart disease of native coronary artery without angina pectoris; I10 Essential (primary) hypertension; J45.909 Unspecified asthma, uncomplicated; E07.9 Disorder of thyroid, unspecified; Z79.51 Long term (current) use of inhaled steroids; Z79.890 Hormone replacement therapy; Z79.899 Other long term (current) drug therapy
CPT/HCPCS: 88305; 45380; 45385; J2704